=== PATIENT | male | born 1995 | race African-American/Black ===

== ENCOUNTER 2019-07-15 20:20 | Emergency (ER) | payer SELFPAY ==
[~2019-07-15] VITALS: Ht 167.6 cm; Wt 64.0 kg
[2019-07-15] MEDS ORDERED: LORAZEPAM 2MG/ML CPJ IV STA (20:39)
[2019-07-15] MEDS ORDERED: HALOPERIDOL LACTATE 5MG/ML VIAL IM STA (20:39)
[2019-07-15 20:56] LABS: EOSINOPHILS % 0.5 % (0.0-5.0); HEMATOCRIT. 42.9 % (42.0-52.0); HEMOGLOBIN. 14.3 g/dL (14.0-18.0); LYMPHOCYTES % 27.8 % (20.0-50.0); MEAN CORPUSCULAR HEMOGLOBIN 27.6 pg (28.0-32.0); MEAN CORPUSCULAR VOLUME 82.4 fL (80.0-94.0); MEAN PLATELET VOLUME 8.9 fl (7.4-10.4); MONOCYTES % 9.2 % (2.0-8.0); NEUTROPHILS % 61.5 % (40.0-76.0); PLATELET 235 x1000/uL (130-400); RED CELL DISTRIBUTION WIDTH 15.1 % (11.6-14.6)
[2019-07-15 21:02] LABS: CHLORIDE 106 mEq/L (98-107)
[2019-07-15 21:06] LABS: ETHANOL BLOOD < 10 mg/dL
[2019-07-15 21:39] LABS: CLARITY URINE CLEAR (CLEAR); COLOR URINE YELLOW (YELLOW); KETONES URINE 1+ (NEGATIVE); LEUKOCYTE ESTERASE URINE NEGATIVE (NEGATIVE); NITRITE URINE NEGATIVE (NEGATIVE); OCCULT BLOOD URINE NEGATIVE (NEGATIVE); PROTEIN URINE NEGATIVE (NEGATIVE); SPECIFIC GRAVITY URINE 1.032 (1.005-1.030)
[2019-07-15 21:56] LABS: *AMPHETAMINES SCREEN URINE PRESUMTIVE POSITIVE (NEGATIVE); *BARBITURATES SCREEN URINE NEGATIVE (NEGATIVE)
[2019-07-15 21:57] LABS: *BENZODIAZEPINES SCREEN URINE NEGATIVE (NEGATIVE); *COCAINE SCREEN URINE NEGATIVE (NEGATIVE); CANNABINOID URINE SCREEN PRESUMTIVE POSITIVE (NEGATIVE); METHADONE URINE SCREEN NEGATIVE (NEGATIVE); OPIATES URINE SCREEN NEGATIVE (NEGATIVE); PHENCYCLIDINE URINE SCREEN NEGATIVE (NEGATIVE)
[2019-07-16] MEDS: OLANZAPINE 5MG TABLET PO SCH (23:22)
[2019-07-16] MEDS: LORAZEPAM 1MG TABLET PO SCH (23:22)
[2019-07-17] MEDS: LORAZEPAM 1MG TABLET PO SCH ×2 (09:33→18:47)
[2019-07-17] MEDS: OLANZAPINE 5MG TABLET PO SCH ×2 (09:33→18:47)
[2019-07-17] MEDS ORDERED: OLANZAPINE 10 MG/VIAL IM ONE (20:00)
[2019-07-17] MEDS ORDERED: HALOPERIDOL LACTATE 5MG/ML VIAL IM ONE (20:00)
[2019-07-17] MEDS ORDERED: LORAZEPAM 2MG/ML CPJ IM ONE (20:00)
[2019-07-18] MEDS: OLANZAPINE 5MG TABLET PO SCH ×2 (08:27→18:15)
[2019-07-18] MEDS: LORAZEPAM 1MG TABLET PO SCH ×2 (08:27→17:12)
[2019-07-19] MEDS ORDERED: LORAZEPAM 1MG TABLET PO SCH (10:00)
[2019-07-19] MEDS ORDERED: OLANZAPINE 5MG TABLET PO SCH (10:00)
[2019-07-19 15:30] VITALS: BP 122/88
== END 2019-07-19 16:00 ==
LOC: ER 20:20 → EDBD 20:20 → ER 07-19 16:00
DX: F15.129 Other stimulant abuse with intoxication, unspecified (principal); R45.851 Suicidal ideations; R45.1 Restlessness and agitation; Z59.0 Homelessness; Z79.899 Other long term (current) drug therapy
CPT/HCPCS: 36415; 71045; 80053; 80305; 80320; 81003; 85025; 96372; 96374; 99285; J1630; J2060; J3490; Z7610; G0480